=== PATIENT | female | born 1990 | race Caucasian/White ===

== ENCOUNTER → 2017-03-03 | Outpatient (CLI) | payer BC ==
[~2017-03-03] MED LIST: ADAL40KI SQ; MULT-506 PO
== END | disposition home or self-care (01) ==
LOC: C.PAPS 08:12
PROVIDERS: ATTEND Obstetrics & Gynecology
DX: Z01.419 Encounter for gynecological examination (general) (routine) without abnormal findings (principal)

== ENCOUNTER → 2017-09-21 | Outpatient (CLI) | payer BC ==
[~2017-09-21] MED LIST changes: +OPTIRAY 320 IV PRN
--- NOTE | 2017-09-21 16:55 | DIAGNOSTIC IMAGING REPORT ---
(CHEST FOR PE) ANGIO WITH CT DOSE: 200.01 mGy.cm HISTORY: 26 years-old Female presents with acute exertional dyspnea. History of prolonged traveling. TECHNIQUE: Multiple CTA images of the chest were obtained after the intravenous administration of 91 ml Optiray 320. Coronal and sagittal MIPS were obtained from the axial data set and were submitted for review. A dose lowering technique was utilized adhering to the principles of ALARA. COMPARISON: CT abdomen and pelvis 02/04/2014, chest radiographs 08/01/2008. FINDINGS: CTA: Heart is normal in size without pericardial effusion. Thoracic aorta is normal in course and caliber without aneurysm or dissection. Imaged great vessels appear patent. Note is made of the left vertebral artery emanating directly from the aortic arch. The pulmonary arterial tree is opacified to the level of the segmental branches and demonstrates no focal filling defects to suggest pulmonary thromboembolic disease. CT CHEST: There is a small nodule of the right thyroid, 6 mm which is nonspecific. Scattered lymph nodes of the bilateral axillary chains are noted measuring up to 7 mm, likely physiologic. No pathologic hilar or mediastinal adenopathy. Mild residual thymic tissue of the anterior mediastinum. No pneumothorax, pleural effusion or focal airspace consolidation. Minimal dependent atelectasis. Central airways are patent. No acute abnormality of the imaged upper abdomen. Soft tissues are unremarkable. The bones appear intact. There are no significant degenerative changes identified. IMPRESSION: 1. No acute intrathoracic abnormality identified, specifically no acute aortic pathology or evidence of pulmonary thromboembolic disease. 2. No lobar airspace consolidation to suggest pneumonia. The above report was generated using voice recognition software. It may contain grammatical, syntax or spelling errors. Electronically signed by: Ben Bragg M.D. 09/21/2017 4:53 PM Dictated Date/Time: 09/21/2017 4:45 PM
== END | disposition home or self-care (01) ==
LOC: C.CTS 16:24
DX: R07.1 Chest pain on breathing (principal); R06.09 Other forms of dyspnea

== ENCOUNTER → 2017-09-21 | Outpatient (CLI) | payer BC ==
[~2017-09-21] MED LIST changes: -OPTIRAY 320 IV PRN
[2017-09-21 12:51] LABS: INR 1.1 (0.9-1.1); PARTIAL THROMBOPLASTIN RATIO 1.3
[2017-09-21 13:02] LABS: PROTHROMBIN TIME (PATIENT) 11.1 SECONDS (9.0-12.0)
== END | disposition home or self-care (01) ==
LOC: C.LAB 12:13
DX: R07.9 Chest pain, unspecified (principal)

== ENCOUNTER → 2017-12-26 | Outpatient (CLI) | payer OTHER ==
[2017-12-26 16:46] LABS: BASO % 0.4 %; BASO ABS # 0.03 K/uL (0-0.2); EOS % 1.4 %; EOS ABS # 0.11 K/uL (0-0.5); HEMATOCRIT 42.6 % (37-47); HEMOGLOBIN 14.6 g/dL (12.0-16.0); IG# 0.01 K/uL (0.00-0.02); LYMPH % 36.4 %; LYMPH ABS # 2.95 K/uL (1.2-3.4); MEAN CELL VOLUME 93.4 fL (80-100); MEAN CORPUSCULAR HGB CONC 34.3 g/dl (32-36); MEAN PLATELET VOLUME 9.2 fL (7.4-10.4); MONO % 5.2 %; MONO ABS # 0.42 K/uL (0.11-0.59); NEUT % 56.5 %; NEUT ABS # 4.58 K/uL (1.4-6.5); PLATELET COUNT 283 K/uL (130-400); RED CELL DISTRIBUTION WIDTH CV 13.3 % (11.5-14.5); RED CELL DISTRIBUTION WIDTH SD 45.3 fL (36.4-46.3)
[2017-12-26 17:18] LABS: ALBUMIN 4.1 gm/dl (3.4-5.0); ALT/SGPT 62 U/L (12-78); AST/SGOT 52 U/L (15-37); BLOOD UREA NITROGEN 7 mg/dl (7-18); CALCIUM 9.5 mg/dl (8.5-10.1); CARBON DIOXIDE 26 mmol/L (21-32); CREATININE 0.83 mg/dl (0.60-1.20); GLUCOSE 116 mg/dl (70-99); LIPASE 81 U/L (73-393); POTASSIUM 3.7 mmol/L (3.5-5.1); SODIUM 136 mmol/L (136-145)
[2017-12-26 17:27] LABS: ALKALINE PHOSPHATASE 49 U/L (45-117); TOTAL PROTEIN 8.2 gm/dl (6.4-8.2); TRANSFERRIN 293 mg/dl (200-360)
== END | disposition home or self-care (01) ==
LOC: C.LAB 15:18
DX: R10.9 Unspecified abdominal pain (principal); R53.83 Other fatigue; M19.90 Unspecified osteoarthritis, unspecified site